=== PATIENT | female | born 1975 | race Caucasian/White ===

== ENCOUNTER 2021-12-13 02:25 | Emergency (ER) | payer OTHER ==
[2021-12-13 02:54] LABS: HEMOGLOBIN 15.7 gm/dl (12.3-15.3); RED BLOOD COUNT 5.4 M/UL (4.00-5.10); WHITE BLOOD COUNT 12.6 K/UL (4.5-11.0)
[2021-12-13 03:15] LABS: BUN/CREATININE RATIO 26 (0-10)
[2021-12-13] MEDS ORDERED: OMNICEF 300 MG300 MG PO (03:57)
[2021-12-13] MEDS ORDERED: ZOFRAN ODT 4 MG4 MG SL (05:16)
== END 2021-12-13 05:26 | disposition home or self-care (01) ==
LOC: ER1 02:25
PROVIDERS: Emergency Medicine
DX: K56.600 Partial intestinal obstruction, unspecified as to cause (principal); Z90.710 Acquired absence of both cervix and uterus; Z90.712 Acquired absence of cervix with remaining uterus; Z20.822 Contact with and (suspected) exposure to COVID-19
CPT/HCPCS: 0240U; 80053; 81001; 83690; 85025; 96374; 96375; 99284; J1885; J2405; Q9967

== ENCOUNTER 2022-06-01 22:36 | Emergency (ER) | payer OTHER ==
[~2022-06-01 22:36] MED LIST: OMNICEF 300 MG300 MG PO; ZOFRAN ODT 4 MG4 MG SL
== END 2022-06-02 | disposition left against medical advice (07) ==
LOC: ER1 22:36
DX: Z53.21 Procedure and treatment not carried out due to patient leaving prior to being seen by health care provider (principal)